=== PATIENT | male | born 1945 | race Caucasian/White ===

== ENCOUNTER 2019-06-15 10:51 | Inpatient (IN) | payer OTHER ==
[2019-06-07 14:36] VITALS: BMI 25.7
--- NOTE | 2019-06-15 10:35 | PN ---
Progress Note (short form) - Note Progress Note: 73M s/p LEFT total knee replacement POD #0. -Pain control: per anaesthesia team. -DVT PPx: -Chemical: ASA 81mg PO BID x 6 weeks. -Mechanical: VANDA's, SCD's. -Incentive spirometry q15 min. -PT/OT/Rehab, OOB. -WBAT LLE. -Post-op Ancef x 3 doses. -f/u post-op TOV: 8 hours max. -f/u AM labs. -Diet as tolerated. -Care per medical hospitalist team. -Discharge planning: f/u [facility] [place] [facility] 06/22/2019; call for appointment . -Will follow. Deng Duong MD (Orthopaedic Surgery).
--- NOTE | 2019-06-15 10:37 | OP ---
Operative Note - Note: Operative Date: 06/15/19 Pre-Operative Diagnosis: L knee DJD Operation: L knee TKA Implants: [employer]. Femur - 5. Tibia - 6. Poly - 9mm, PS. Patella - 27mm, symmetric Post-Operative Diagnosis: Same as Pre-op Surgeon: Deng Duong Surgical Appliance Fitter: Chevy Duong Anesthesiologist/MANAGER HEART FAILURE: Bernie Luis Anesthesia: Spinal Specimens Removed: Bone, soft tissue Estimated Blood Loss (mls): 0 Drains & Tubes with Location: 1 x deep HemoVac Fluid Volume Replaced (mls): 1,000 (Crystalloid) Operative Report Dictated: Yes
[~2019-06-15 10:51] MED LIST: BENZOIN TINCTURE SWABSTICK TP ONE; BUPIVACAINE LIPOSOME/PF (EXPAREL) 266 MG/20 ML VIAL ONE; CEFAZOLIN 1 GM/D5W 1 GRAM/50 ML BAG IVPB ONE; DEXAMETHASONE SOD PHOSPHATE 4 MG/1 ML VIAL ONE; DEXMEDETOMIDINE HCL 200 MCG/2 ML IVPB ONE; LACTATED RINGERS SOLUTION 1,000 ML IV SCH; LIDOCAINE HCL/PF 2% SDV 5ML VIAL ONE; MAG HYDROX/AL HYDROX/SIMETH 30 ML UNIT-DOSE CUP PO PRN; MAGNESIUM HYDROX 2400MG/30ML ORAL SUSPENSION 30 ML CUP PO PRN; MIDAZOLAM HCL 2 MG/2 ML SINGLE DOSE VIAL ONE; ONDANSETRON 4 MG/2 ML VIAL IVPUSH PRN; ONDANSETRON 4 MG/2 ML VIAL ONE; PROPOFOL 20 ML ONE; SODIUM CHLORIDE 0.9% P/F 10 ML VIAL IJ ONE; SUCCINYLCHOLINE CHLORIDE 200 MG/10 ML SYRINGE ONE; TRANEXAMIC ACID 1000 MG/10 ML VIAL IVPUSH ONE; VANCOMYCIN 1,000 MG VIAL (RESTRICTED TO ID ONLY) ONE; VANCOMYCIN 1,250 MG in DEXTROSE 5%-WATER - 250 ML IVPB ONE; ceFAZolin SODIUM 1 GM VIAL ONE; ePHEDrine SULFATE 50 MG/1 ML AMPULE ONE
[2019-06-15] MEDS ORDERED: ACETAMINOPHEN 325 MG TABLET (FP) ONE (12:07)
[2019-06-15] MEDS: ACETAMINOPHEN 325 MG TABLET (FP) PO SCH ×3 (12:15→23:03)
--- NOTE | 2019-06-15 12:33 | HP ---
HISTORY OF PRESENT ILLNESS: 73 year-old male with a PMH significant for HTN, HLD, and left knee DJD s/p left total knee arthroplasty with Dr. Deng Duong earlier today. Recent Travel: No PAST MEDICAL HISTORY: Hypertension Hyperlipidemia Degenerative joint disease PAST SURGICAL HISTORY: Left inguinal hernia repair Social History: Smoking: former, quit 1986 Alcohol: social Drugs: no Allergies No Known Drug Allergies Allergy (Verified 06/07/19 13:21) HOME MEDICATIONS: Home Medications Medication Instructions Recorded Amlodipine Besylate/Benazepril 1 each PO DAILY 06/07/19 [Lotrel 5-20 mg Capsule] Aspirin [Ecotrin] 81 mg PO DAILY 06/07/19 Simvastatin 10 mg PO HS 06/07/19 REVIEW OF SYSTEMS CONSTITUTIONAL: Absent: fever, chills, diaphoresis, generalized weakness, malaise, loss of appetite, weight change HEENT: Absent: rhinorrhea, nasal congestion, throat pain, throat swelling, difficulty swallowing, mouth swelling, ear pain, eye pain, visual changes CARDIOVASCULAR: Absent: chest pain, syncope, palpitations, irregular heart rate, lightheadedness , peripheral edema RESPIRATORY: Absent: cough, shortness of breath, dyspnea with exertion, orthopnea, wheezing, stridor, hemoptysis GASTROINTESTINAL: Absent: abdominal pain, abdominal distension, nausea, vomiting, diarrhea, constipation, melena, hematochezia GENITOURINARY: Absent: dysuria, frequency, urgency, hesitancy, hematuria, flank pain, genital pain MUSCULOSKELETAL: Absent: myalgia, arthralgia, joint swelling, back pain, neck pain SKIN: Absent: rash, itching, pallor HEMATOLOGIC/IMMUNOLOGIC: Absent: easy bleeding, easy bruising, lymphadenopathy, frequent infections ENDOCRINE: Absent: unexplained weight gain, unexplained weight loss, heat intolerance, cold intolerance NEUROLOGIC: Absent: headache, focal weakness or paresthesias, dizziness, unsteady gait, seizure, mental status changes, bladder or bowel incontinence PSYCHIATRIC: Absent: anxiety, depression, suicidal or homicidal ideation, hallucinations. PHYSICAL EXAMINATION Vital Signs - 24 hr 06/15/19 06/15/19 06/15/19 06:34 10:56 11:00 Temperature 97.9 F 97.2 F L Pulse Rate 64 70 69 Respiratory 18 16 17 Rate Blood Pressure 143/74 99/55 L 108/78 O2 Sat by Pulse 97 95 97 Oximetry (%) 06/15/19 06/15/19 06/15/19 11:05 11:10 11:25 Temperature Pulse Rate 70 68 68 Respiratory 18 20 17 Rate Blood Pressure 103/54 L 103/54 L 98/53 L O2 Sat by Pulse 97 97 98 Oximetry (%) 06/15/19 06/15/19 06/15/19 11:40 11:55 12:10 Temperature Pulse Rate 66 72 68 Respiratory 17 18 20 Rate Blood Pressure 91/39 L 100/54 L 108/50 L O2 Sat by Pulse 98 96 98 Oximetry (%) 06/15/19 12:27 Temperature 97.2 F L Pulse Rate 63 Respiratory 20 Rate Blood Pressure 110/55 L O2 Sat by Pulse 98 Oximetry (%) GENERAL: Awake, alert, and fully oriented, in no acute distress. HEAD: Normal with no signs of trauma. EYES: Pupils equal, round and reactive to light, extraocular movements intact, sclera anicteric, conjunctiva clear. No lid lag. LUNGS: Breath sounds equal, clear to auscultation bilaterally. No wheezes, and no crackles. No accessory muscle use. HEART: Regular rate and rhythm, normal S1 and S2 ABDOMEN: Soft, nontender, not distended UPPER EXTREMITIES: 2+ pulses, warm, well-perfused. No cyanosis. No clubbing. No peripheral edema. LOWER EXTREMITIES: TEDs, SCDs, left leg surgical dressings c/d/i, ice pack, can flex/extend toes NEUROLOGICAL: Cranial nerves II-XII intact. Normal speech. Pre op Hgb 13.2 BUN 19, Cr 1.0 Intra op Cefazolin 2g, vanc 1g LR 1,700ccs EBL <100ccs ASSESSMENT/PLAN: 73 year-old male with a PMH significant for HTN, HLD, and left knee DJD s/p left total knee arthroplasty with Dr. Deng Duong earlier today. Left total knee arthroplasthy --POD #0 --perioperative antibiotics per surgery --pain management per surgery --ASA 81mg BID --protonix --bowel regimen --incentive spirometry --Hemovac drain, monitor output Hypertension --continue amlodipine, lisinopril Hyperlipidemia --continue atorvastatin FEN Fluids: LR@125mL/hr Electrolytes: replete as indicated Nutrition: regular diet DVT prophylaxis: OOB, ambulation, SCDs, TEDs, ASA 81mg BID Physical therapy Dispo: continues to require inpatient care. Full code. Visit type - Emergency Visit Emergency Visit: No - New Patient This patient is new to me today: Yes Date on this admission: 06/15/19 - Critical Care Critical Care patient: No
[2019-06-15] MEDS: CEFAZOLIN 2 GM/D5W 2 GM/50 ML ML IVPB SCH ×3 (14:30→22:53)
[2019-06-15] MEDS: oxyCODONE HCL 10 MG SUSTAINED ACTING TABLET PO SCH ×2 (14:30→21:06)
--- NOTE | 2019-06-15 16:08 | OP ---
DATE OF OPERATION: 06/15/2019 OPERATION: Left total knee replacement. MD ELISE Sanchez/[id number]
[2019-06-15] MEDS: oxyCODONE HCL 5 MG TABLET PO PRN ×2 (18:24→22:53)
[2019-06-15] MEDS: ATORVASTATIN CA 10 MG TABLET (FP) PO SCH (21:05)
[2019-06-15] MEDS: ASPIRIN COATED 81 MG TABLET.EC PO SCH (21:05)
[2019-06-15] MEDS: SENNOSIDES/DOCUSATE COMBO (SENNA PLUS) TABLET (UD) PO SCH (21:07)
[2019-06-15] MEDS ORDERED: PATIENT'S OWN MEDICATION (NON-FORMULARY) (Simvastatin [Simvastatin] 10 MG) PO SCH (22:00)
[2019-06-16] MEDS: oxyCODONE HCL 5 MG TABLET PO PRN ×3 (04:17→17:06)
[2019-06-16] MEDS: ACETAMINOPHEN 325 MG TABLET (FP) PO SCH ×4 (06:22→23:41)
[2019-06-16 07:49] LABS: HEMATOCRIT 33.2 % (35.4-49); HEMOGLOBIN 10.9 GM/dl (11.7-16.9); MCH 29.4 pg (25.7-33.7); MCHC 32.9 g/dl (32.0-35.9); MEAN CELL VOLUME 89.3 fl (80-96); MEAN PLT VOLUME 7.8 fl (7.5-11.1); PLATELET COUNT 259 K/MM3 (134-434); RBC 3.72 M/mm3 (4.00-5.60); RDW 12.6 % (11.9-15.9); WHITE BLOOD COUNT 13.2 K/mm3 (4.0-10.8)
[2019-06-16 07:54] LABS: CALCIUM 8.2 mg/dl (8.5-10); CREATININE 0.9 mg/dl (0.55-1.3); MAGNESIUM 1.7 mg/dL (1.8-2.4); POTASSIUM 4.5 mmol/L (3.5-5.1)
--- NOTE | 2019-06-16 07:57 | PN ---
Progress Note (short form) - Note Progress Note: ORTHOPAEDIC SURGERY POD #1 s/p s/p Left total knee arthroplasty No acute events since surgery per RN notes. Currently sitting in chair at bedside, legs elevated, rolled towel under heels, ice pack in place. C/o incisional pain. Adequate pain control with medications ordered. Voiding spontaneoulsy. Denies n/v/f/c, CP, palpitations, SOB or ALFARO. Last Vital Signs Temp Pulse Resp BP Pulse Ox 98.1 F 72 18 153/70 99 06/16/19 06:00 06/16/19 06:00 06/16/19 06:00 06/16/19 06:00 06/16/19 06:00 Hemeovac 06/15/19 06/15/19 06/16/19 18:34 22:00 06:00 Drain 180 170 175 PE Gen: alert. nad. LE: dressing c/d/i. Drain on suction (sanguinous). SCDs bilat. LE compartments soft, NT bilat. Palpable DP & PT. Dorsi/plantar felxion 5/5 Problem List - Problems (1) Status post total left knee replacement using cement Assessment/Plan: POD #1 s/p Lt TKR GOALS FOR TODAY 1. Pain control 2. DVT PPX --> ASA 81 mg PO BID x 6 weeks; Mechanical via TEDs & SCDs 3. Incentive spirometer 4. OOB with PT 5. WBAT LLE 6. Cont to monitor & record drain output q shift 7. Discharge planning to home 06/17/19 8. Will cont to follow with [facility] Hospitalist through discharge Above plan discussed with Dr. Chevy Duong and agree Code(s): Z96.652 - PRESENCE OF LEFT ARTIFICIAL KNEE JOINT (2) HTN (hypertension) Code(s): I10 - ESSENTIAL (PRIMARY) HYPERTENSION (3) HLD (hyperlipidemia) Code(s): E78.5 - HYPERLIPIDEMIA, UNSPECIFIED
--- NOTE | 2019-06-16 08:45 | PN ---
Physical Exam: SUBJECTIVE: Patient seen and examined. Ambulating with PT. Feeling better. Pain well-managed. OBJECTIVE: Vital Signs Period Temp Pulse Resp BP Sys/Torres Pulse Ox Last 24 Hr 97.2 F-98.3 F 63-88 16-20 91-153/39-78 95-99 GENERAL: Awake, alert, and fully oriented, in no acute distress. HEAD: Normal with no signs of trauma. EYES: Pupils equal, round and reactive to light, extraocular movements intact, sclera anicteric, conjunctiva clear. No lid lag. LUNGS: Breath sounds equal, clear to auscultation bilaterally. No wheezes, and no crackles. No accessory muscle use. HEART: Regular rate and rhythm, normal S1 and S2 ABDOMEN: Soft, nontender, not distended UPPER EXTREMITIES: 2+ pulses, warm, well-perfused. No cyanosis. No clubbing. No peripheral edema. LOWER EXTREMITIES: TEDs, SCDs, left leg surgical dressings c/d/i NEUROLOGICAL: Cranial nerves II-XII intact. Normal speech. Laboratory Results - last 24 hr 06/16/19 06/16/19 05:20 05:20 WBC 13.2 H RBC 3.72 L Hgb 10.9 L Hct 33.2 L MCV 89.3 MCH 29.4 MCHC 32.9 RDW 12.6 Plt Count 259 MPV 7.8 Sodium 135 L Potassium 4.5 Chloride 102 Carbon Dioxide 26 Anion Gap 7 L BUN 17.0 Creatinine 0.9 Est GFR (CKD-EPI)AfAm 97.86 Est GFR (CKD-EPI)NonAf 84.43 Random Glucose 129 H Calcium 8.2 L Magnesium 1.7 L Active Medications Generic Name Dose Route Start Last Admin Trade Name Freq PRN Reason Stop Dose Admin Acetaminophen 650 mg 06/15/19 12:00 06/16/19 06:22 Tylenol - PO 06/18/19 11:59 650 mg Q6H KAY Administration Al Hydroxide/Mg Hydroxide 30 ml 06/15/19 10:26 Mylanta Oral Suspension - PO Q4H PRN DYSPEPSIA Amlodipine Besylate 5 mg 06/16/19 10:00 Norvasc - PO DAILY KAY Aspirin 81 mg 06/15/19 22:00 06/15/19 21:05 Ecotrin - PO 81 mg BID KAY Administration Atorvastatin Calcium 10 mg 06/15/19 22:00 06/15/19 21:05 Lipitor - PO 10 mg HS KAY Administration Lisinopril 20 mg 06/16/19 10:00 Prinivil PO DAILY KAY Magnesium Hydroxide 30 ml 06/15/19 10:26 Milk Of Magnesia - PO PRN PRN CONSTIPATION Ondansetron HCl 4 mg 06/15/19 10:26 Zofran Injection IVPUSH Q6H PRN NAUSEA Oxycodone HCl 5 mg 06/15/19 08:22 06/15/19 22:53 Roxicodone - PO 5 mg Q3H PRN Administration PAIN LEVEL 1-5 Oxycodone HCl 10 mg 06/15/19 08:22 06/16/19 04:17 Roxicodone - PO 10 mg Q3H PRN Administration PAIN LEVEL 6-10 Pantoprazole Sodium 40 mg 06/16/19 10:00 Protonix - PO DAILY KAY Senna/Docusate Sodium 2 tablet 06/15/19 22:00 06/15/19 21:07 Pericolace - PO 2 tablet BID KAY Administration Pre op Hgb 13.2 BUN 19, Cr 1.0 Intra op Cefazolin 2g, vanc 1g LR 1,700ccs EBL <100ccs ASSESSMENT/PLAN: 73 year-old male with a PMH significant for HTN, HLD, and left knee DJD s/p left total knee arthroplasty with Dr. Deng Duong earlier today. Left total knee arthroplasthy --POD #1 --perioperative antibiotics complete --pain management per surgery --ASA 81mg BID --protonix --bowel regimen --incentive spirometry --Hemovac drain, monitor output Hypertension --continue amlodipine, lisinopril Hyperlipidemia --continue atorvastatin FEN Fluids: PO intake adequate Electrolytes: replete as indicated Nutrition: regular diet DVT prophylaxis: OOB, ambulation, SCDs, TEDs, ASA 81mg BID Physical therapy Dispo: continues to require inpatient care. Full code. Visit type - Emergency Visit Emergency Visit: No - New Patient This patient is new to me today: No - Critical Care Critical Care patient: No
[2019-06-16] MEDS ORDERED: MAGNESIUM OXIDE 400 MG TABLET (FP) PO ONE (09:00)
[2019-06-16] MEDS: SENNOSIDES/DOCUSATE COMBO (SENNA PLUS) TABLET (UD) PO SCH ×2 (09:32→21:15)
[2019-06-16] MEDS: ASPIRIN COATED 81 MG TABLET.EC PO SCH ×2 (09:32→21:15)
[2019-06-16] MEDS: LISINOPRIL 20 MG TABLET (FP) PO SCH (09:32)
[2019-06-16] MEDS: PANTOPRAZOLE 40 MG TABLET (FP) PO SCH (09:32)
[2019-06-16] MEDS: amLODIPine BESYLATE 5 MG TABLET (FP) PO SCH (09:32)
[2019-06-16] MEDS ORDERED: PATIENT'S OWN MEDICATION (NON-FORMULARY) (Amlodipine Besylate/Benazepril [Lotrel 5-20 Mg C PO SCH (10:00)
--- NOTE | 2019-06-16 12:15 | PN ---
Progress Note (short form) - Note Progress Note: 73M M POD1 s/p L TKR under spinal anesthetic with peripheral nerve blocks for post operative pain relief. Pt states that pain is well controlled and denies any anesthetic complications. AVSS. Continue current regimen.
[2019-06-16] MEDS: ATORVASTATIN CA 10 MG TABLET (FP) PO SCH (21:15)
[2019-06-17] MEDS: ACETAMINOPHEN 325 MG TABLET (FP) PO SCH ×2 (06:37→11:49)
--- NOTE | 2019-06-17 07:12 | PN ---
Progress Note (short form) - Note Progress Note: ORTHOPAEDIC SURGERY POD #2 s/p s/p Left total knee arthroplasty No acute events since surgery per RN notes. Currently sitting in chair at bedside, legs elevated, rolled towel under heels, ice pack in place. PT notes reviewed and doing well. Voiding spontaneoulsy. Denies n/v/f/c, CP, palpitations, SOB or ALFARO. Last Vital Signs Temp Pulse Resp BP Pulse Ox 98.2 F 75 18 125/56 L 95 06/17/19 06:00 06/17/19 06:00 06/17/19 06:00 06/17/19 06:00 06/17/19 06:00 PE Gen: alert. nad. LE: dressing c/d/i. Drain dc'd while on rounds. SCDs bilat. LE compartments soft , NT bilat. Palpable DP & PT. Knee flexion to 90 degrees. Dorsi/plantar felxion 5/5 Problem List - Problems (1) Status post total left knee replacement using cement Assessment/Plan: POD #2 s/p Lt TKR GOALS FOR TODAY 1. Pain control 2. DVT PPX --> ASA 81 mg PO BID x 6 weeks; Mechanical via TEDs & SCDs 3. Incentive spirometer 4. OOB with PT 5. WBAT LLE 6. Discharge home after PT today 7. F/u [facility] detailed in DC PLAN tab. Code(s): Z96.652 - PRESENCE OF LEFT ARTIFICIAL KNEE JOINT (2) HTN (hypertension) Code(s): I10 - ESSENTIAL (PRIMARY) HYPERTENSION (3) HLD (hyperlipidemia) Code(s): E78.5 - HYPERLIPIDEMIA, UNSPECIFIED
[2019-06-17 07:51] LABS: HEMATOCRIT 34.1 % (35.4-49); HEMOGLOBIN 11.1 GM/dl (11.7-16.9); MCH 29.6 pg (25.7-33.7); MCHC 32.6 g/dl (32.0-35.9); MEAN CELL VOLUME 90.8 fl (80-96); MEAN PLT VOLUME 7.9 fl (7.5-11.1); PLATELET COUNT 267 K/MM3 (134-434); RBC 3.76 M/mm3 (4.00-5.60); WHITE BLOOD COUNT 15.1 K/mm3 (4.0-10.8)
--- NOTE | 2019-06-17 08:52 | DS ---
"Physical Exam: SUBJECTIVE: Patient seen and examined OBJECTIVE: Vital Signs Period Temp Pulse Resp BP Sys/Torres Pulse Ox Last 24 Hr 97.8 F-99.7 F 72-82 12-18 119-142/56-79 94-95 PHYSICAL EXAM GENERAL: The patient is awake, alert, and fully oriented, in no acute distress. HEAD: Normal with no signs of trauma. EYES: PERRL, extraocular movements intact, sclera anicteric, conjunctiva clear. ENT: Ears normal, nares patent, oropharynx clear without exudates, moist mucous membranes. NECK: Trachea midline, full range of motion, supple. LUNGS: Breath sounds equal, clear to auscultation bilaterally, no wheezes, no crackles, no accessory muscle use. HEART: Regular rate and rhythm, S1, S2 without murmur, rub or gallop. ABDOMEN: Soft, nontender, nondistended, normoactive bowel sounds, no guarding, no rebound, no hepatosplenomegaly, no masses. EXTREMITIES: 2+ pulses, warm, well-perfused, no edema. NEUROLOGICAL: Cranial nerves II through XII grossly intact. Normal speech, gait not observed. PSYCH: Normal mood, normal affect. SKIN: Warm, dry, normal turgor, no rashes or lesions noted. LABS Laboratory Results - last 24 hr 06/17/19 07:00 WBC 15.1 H RBC 3.76 L Hgb 11.1 L Hct 34.1 L MCV 90.8 MCH 29.6 MCHC 32.6 RDW 13.0 Plt Count 267 MPV 7.9 HOSPITAL COURSE: Date of Admission:06/16/19 Date of Discharge: 06/17/19 This report was requested by: Radha Minor | Reference #: [id number] There are no results for the search terms that you entered. Minutes to complete discharge: 35 Discharge Summary Reason For Visit: LEFT KNEE OSTEOARTHRITIS Current Active Problems HLD (hyperlipidemia) (Acute) HTN (hypertension) (Acute) Status post total left knee replacement using cement (Acute) Condition: Stable - Instructions Diet, Activity, Other Instructions: Dr. Duong Discharge Instructions for Knee Replacement Post Operative Instructions Physical activity Physical Therapist will come to your home for the first 5 days. You will be set up with outpatient PT at your first post-operative visit. Use assistive devices for ambulation at all times. Weight bearing as tolerated on your surgical side. Do not put pillow under knee. May put pillow under heel. Wound care Leave your surgical dressing in place. Do not change the dressing until seen by your surgeon in the office. No baths or showers. Do not submerge your incision. Do not apply any ointments or lotions to your incision. Please call the office if your dressing is soiled/dirty or is falling off. Apply Graduated Compression Stockings (TEDS) to both lower extremities - remove daily for hygiene ONLY. Diet There are no dietary restrictions. Eat healthy, high-fiber foods. Drink 6 to 8 glasses of liquid each day. This will assist in keeping your bowels are regular. Pain management Any pain prescription medication ordered should be taken as prescribed for moderate to severe pain. Do not take additional Tylenol while taking Percocet. Take Aspirin 81 mg two times a day for a total of 6 weeks to prevent blood clots. Call Dr. Duong for any of the following: Severe pain not relieved by medication Fever of 101 or higher Excessive bleeding or drainage on dressing Inability to urinate If you experience chest pain or shortness of breath, please seek emergency care immediately. Please call the office at to confirm your post-op appointment for the week following surgery. iSTOP: This report was requested by: Vivek Maher | Reference #: [id number] - Home Medications Comprehensive Discharge Medication List: Ambulatory Orders Amlodipine Besylate/Benazepril [Lotrel 5-20 mg Capsule] 1 each PO DAILY Aspirin [Ecotrin] 81 mg PO DAILY 06/07/19 Simvastatin 10 mg PO HS 06/07/19 This patient is new to me today: No Emergency Visit: No Critical Care patient: No - Discharge Referral Referred to [facility] No"
[2019-06-17] MEDS: oxyCODONE HCL 5 MG TABLET PO PRN (10:10)
[2019-06-17] MEDS: LISINOPRIL 20 MG TABLET (FP) PO SCH (10:10)
[2019-06-17] MEDS: amLODIPine BESYLATE 5 MG TABLET (FP) PO SCH (10:10)
[2019-06-17] MEDS: PANTOPRAZOLE 40 MG TABLET (FP) PO SCH (10:10)
[2019-06-17] MEDS: SENNOSIDES/DOCUSATE COMBO (SENNA PLUS) TABLET (UD) PO SCH (10:10)
[2019-06-17] MEDS: ASPIRIN COATED 81 MG TABLET.EC PO SCH (10:10)
[2019-06-17 11:54] VITALS: BP 123/59; PULSE 70; TEMP 97.9
--- NOTE | 2019-06-17 15:11 | PATH ---
Surgical Pathology Report Patient Name: OLAYINKA COATES Med. Rec. #: [id number] /Age/Gender: 1945 (Age: 73) / M Account: [id number] Location: [facility] MED[facility] Taken: 06/15/2019 Received: 06/15/2019 Reported: 06/17/2019 Physicians: Deng Duong M.D. Specimen(s) Received LEFT KNEE BONES Clinical History Left knee osteoarthritis Final Diagnosis KNEE BONES, LEFT, TOTAL KNEE REPLACEMENT: DEGENERATIVE JOINT DISEASE. Electronically Signed Jessa Crow M.D. Gross Description Received in formalin labeled "left knee bones," is a 10.5 x 9.5 x 2.5 cm aggregate of multiple portions of bone and soft tissue. The tibial plateau measures 8.3 x 5.8 x 1.7 cm. There are multiple areas of eburnation present, measuring up to 4.4 cm in greatest dimension. The remaining articular surfaces are turner-yellow and focally granular. The underlying trabecular bone is yellow and hard. Room Service Supervisor sections are submitted in one cassette, following decalcification. 06/16/201906/16/2019
== END 2019-06-17 11:50 | disposition home or self-care (01) | DRG 470 ==
LOC: SUATTDRO 10:51 → FASUSAT 10:51 → FM/S 10:51
PROVIDERS: ADMIT Internal Medicine; ATTEND Nurse Practitioner Acute Care
PROC: 0SRD0JZ Replacement of Left Knee Joint with Synthetic Substitute, Open Approach (ICD-10-PCS; principal; 2019-06-15 08:39)
DX: M17.12 Unilateral primary osteoarthritis, left knee (principal); I10 Essential (primary) hypertension; E78.5 Hyperlipidemia, unspecified
CPT/HCPCS: 36415; 73560-TC-LT-FY; 80048; 83735; 85027; 88304-TC; 88311-TC; 94760; 97116-GP; 97163-GP